=== PATIENT | female | born 1930 | race African-American/Black ===

== ENCOUNTER 2016-12-23 20:41 | Emergency (ER) | payer OTHER ==
[~2016-12-23] VITALS: Ht 170.2 cm; Wt 73.6 kg
[~2016-12-23 20:41] MED LIST: ABILIFY5 MG PO; ACETAMINOPHEN-1 EAC1; ACTONEL150 MG PO; ADULT LOW DOSE81 MG PO; AMLODIPINE BES2.5 MG PO; AMLODIPINE BESYL5 MG PO; ASPIRIN81 M2 PO; ATARAX,VISTARIL25 MG PO; ATARAX10 MG PO; ATORVASTATIN CA40 MG PO; AZASAN75 MG PO; Benadryl PO; CARVEDILOL12.5 MG PO; CLEOCIN150 MG PO; COREG12.5 M1 PO; CRANBERRY TABL1 EACH PO; Coreg PO; DULOXETINE HCL30 MG PO; Dulcolax PO; ERGOCALCIF50000 UNIT PO; ESCITALOPRAM OX10 MG PO; EVOXAC30 MG PO; FLUOXETINE HCL10 MG PO; GABAPENTIN100 MG PO; GLUCAGEN1 MG IM/SC; HUMULIN 70100 UNIT/2 SC; HUMULIN 70100 UNIT/2 SQ; HYDROCODON-ACE1 EA14 PO; HYDROXYCHLOROQ200 MG PO; IMURAN50 MG PO; Imuran PO; JANUVIA100 MG PO; K-DUR20 MEQ PO; KEFLEX500 MG PO; KETOCONAZOLE60 GM TP; LASIX10 MG PO; LASIX20 MG PO; LEVOFLOXACIN500 MG PO; LEVOTHYROXINE50 MCG PO; LIDODERM 5% P1 PATCH TP; LO-DOSE ASPIRIN81 M2 PO; LORTAB 7.5-3251 EACH PO; LOW DOSE ASPIRI81 M1 PO; LYRICA150 MG PO; LYRICA50 MG PO; Lasix PO; METOPROLOL SUCC25 MG PO; Maalox, Mylanta PO; Milk Of Magnesia,MOM PO; NORCO 5/3251 TABLET PO; NORCO 7.5/321 TABLET PO; NORVASC2.5 MG PO; NOVOLOG PE100 UNITS/ SC; Norvasc PO; OCEAN NASAL 0.645 ML BOTH NARES; PATANOL OP100 DROP/5 BOTH EYES; PLAQUENIL200 MG PO; PRAVACHOL20 MG PO; PREDNISONE5 MG PO; Percocet 5/325,Endoc PO; Plaquenil PO; Protonix PO; Senokot S,Pericolace PO; TOPROL XL50 MG PO; VITAMIN D1000 UNIT PO; VITAMIN D250000 UNIT PO; VITAMIN D31000 UNIT PO; VITAMIN D50000 UNI2 PO; Xarelto PO; ZOFRAN4 MG PO; ZOLPIDEM TARTRAT5 MG PO; Zocor PO; [UNRECOGNIZED DRUG - OTHER]; [UNRECOGNIZED DRUG - SUPPLY] MC; predniSONE PO
[2016-12-23 21:19] LABS: EOSINOPHIL (%) 1.8 % (0-5); EOSINOPHIL COUNT 0.1 K/uL (0-0.3); HEMATOCRIT 46.9 % (36.0-46.0); IMMATURE GRANULOCYTE (%) 0.3 % (0.0-0.7); INSTRUMENT ABS NEUTROPHIL CT 1.6 K/uL; LYMPHOCYTE COUNT 1.2 K/uL (1.0-2.8); MCHC 31.3 G/DL (30.0-36.0); MCV 95.7 FL (83-99); MEAN PLAT.VOLUME 10.8 uM^3 (9.5-12.4); MONOCYTE COUNT 0.4 K/uL (0-0.8); NEUTROPHIL COUNT 1.6 K/uL (1.8-6.4); PLATELET COUNT 131 K/uL (156-360); RBC DIS.WIDTH-SD 49.6 % (39-53); WHITE BLOOD COUNT 3.3 K/uL (4.1-10.2)
[2016-12-23 21:27] LABS: CHLORIDE 111 mEq/L (99-109); POTASSIUM 4.3 mEq/L (3.7-5.4); SODIUM 147 mEq/L (136-147)
[2016-12-23 21:28] LABS: GLUCOSE 100 mg/dL (70-99)
[2016-12-23 21:30] LABS: ANION GAP 9 MEQ/L (2-14)
[2016-12-23 21:32] LABS: GFR ESTIMATE (CALCULATED) > 59 mL/min/
[2016-12-23 21:33] LABS: UREA NITROGEN (BUN) 23 mg/dL (9-23)
[2016-12-23 21:42] LABS: INTER. NORMALIZED RATIO 1.1; PROTHROMBIN TIME 10.7 (9.2-11.2); PTT 28.9 (25-32); TROP-I INTERPRETATION NEGATIVE; TROPONIN-I < 0.01 ng/mL (0.0-0.30)
[2016-12-23 21:59] LABS: SAMPLE HEMOLYSIS CHECK 0; SAMPLE ICTERIC CHECK 0; SAMPLE LIPEMIA CHECK 0
[2016-12-23 22:05] LABS: HDL CHOLESTEROL 50 MG/DL (Desirable>=50); LDL CHOLESTEROL 87 mg/dL (Desirable<100); NON-HDL CHOLESTEROL 97 mg/dL (Desirable<160); TOTAL CHOLESTEROL 147 mg/dL (Desirable<200); TRIGLYCERIDES 51 MG/DL (Normal: <150)
[2016-12-23 23:08] LABS: ADD MIUA? YES; BILIRUBIN NEGATIVE; BLOOD MODERATE; COLOR YELLOW ((YELLOW)); GLUCOSE (STRIP) NEGATIVE; KETONES NEGATIVE; LEUKOCYTES MODERATE; NITRITE POSITIVE; PROTEIN (STRIP) 30; SPECIFIC GRAVITY 1.018 (1.000-1.030); UROBILINOGEN 0.2 MG/DL (0.2-1.0)
[2016-12-23 23:21] LABS: BACTERIA 3+ /HPF; EPITHELIAL CELLS 1+ /HPF; MUCUS TRACE /LPF; RED BLOOD CELLS 0-5 /HPF (0-5); UCUL ADDED? YES; WHITE BLOOD CELLS 30-40 /HPF (0-5)
[2016-12-24] MEDS ORDERED: CIPRO500 MG PO (00:23)
[2016-12-24 01:02] VITALS: BP 165/42
[2016-12-24 07:06] LABS: Estimated Average Glucose 120 mg/dL (70-123); HEMOGLOBIN A1c (GLYCOHEMOGLOB) 5.8 % HGB (Below 5.7)
== END 2016-12-24 01:05 | disposition home or self-care (01) ==
LOC: EME 20:41
PROVIDERS: Emergency Medicine
DX: N39.0 Urinary tract infection, site not specified (principal); R44.2 Other hallucinations; F29 Unspecified psychosis not due to a substance or known physiological condition; F32.9 Major depressive disorder, single episode, unspecified; I10 Essential (primary) hypertension; E11.9 Type 2 diabetes mellitus without complications; Z79.4 Long term (current) use of insulin; E03.9 Hypothyroidism, unspecified; Z88.2 Allergy status to sulfonamides; Z79.82 Long term (current) use of aspirin; Z87.891 Personal history of nicotine dependence
CPT/HCPCS: 70450; 71010; 80048; 80061; 81003; 83036; 84484; 85025; 85610; 85730; 87077; 87086; 87186; 90839; 93005; 99281; 99284

== ENCOUNTER 2017-01-09 12:02 | Emergency (ER) | payer OTHER ==
[~2017-01-09] VITALS: Ht 170.2 cm; Wt 77.3 kg
[~2017-01-09 12:02] MED LIST changes: +CIPRO500 MG PO
[2017-01-09 12:51] LABS: EOSINOPHIL COUNT 0.1 K/uL (0-0.3); HEMATOCRIT 43.3 % (36.0-46.0); IMMATURE GRANULOCYTE (%) 0.3 % (0.0-0.7); INSTRUMENT ABS NEUTROPHIL CT 2.3 K/uL; LYMPHOCYTE COUNT 0.7 K/uL (1.0-2.8); MCH 30.1 PG (29.0-34.0); MCHC 31.6 G/DL (30.0-36.0); MCV 95.2 FL (83-99); MEAN PLAT.VOLUME 10.7 uM^3 (9.5-12.4); MONOCYTE (%) 12.1 % (3-12); MONOCYTE COUNT 0.4 K/uL (0-0.8); NEUTROPHIL (%) 64.8 % (45-76); NEUTROPHIL COUNT 2.3 K/uL (1.8-6.4); PLATELET COUNT 134 K/uL (156-360); RBC DIS.WIDTH-CV 13.7 % (11.8-14.6); RBC DIS.WIDTH-SD 48.5 % (39-53); RED BLOOD COUNT 4.55 M/uL (3.80-5.20); WHITE BLOOD COUNT 3.5 K/uL (4.1-10.2)
[2017-01-09 13:02] LABS: CHLORIDE 106 mEq/L (99-109); POTASSIUM 3.7 mEq/L (3.7-5.4)
[2017-01-09 13:03] LABS: SODIUM 142 mEq/L (136-147)
[2017-01-09 13:05] LABS: GLUCOSE 113 mg/dL (70-99)
[2017-01-09 13:06] LABS: ANION GAP 7 MEQ/L (2-14)
[2017-01-09 13:07] LABS: TOTAL BILIRUBIN 0.7 mg/dL (0.0-1.0)
[2017-01-09 13:08] LABS: SERUM ETHYL ALCOHOL < 10 mg/dL
[2017-01-09 13:09] LABS: ALKALINE PHOSPHATASE 62 IU/L (3-129); GFR ESTIMATE (CALCULATED) > 59 mL/min/
[2017-01-09 13:10] LABS: DIRECT BILIRUBIN 0.3 mg/dL (0.0-0.3); UREA NITROGEN (BUN) 14 mg/dL (9-23)
[2017-01-09 13:29] LABS: ADD MIUA? NO; BILIRUBIN NEGATIVE; BLOOD NEGATIVE; COLOR YELLOW ((YELLOW)); GLUCOSE (STRIP) NEGATIVE; KETONES NEGATIVE; LEUKOCYTES NEGATIVE; NITRITE NEGATIVE; PROTEIN (STRIP) NEGATIVE; SPECIFIC GRAVITY 1.009 (1.000-1.030); UROBILINOGEN 0.2 MG/DL (0.2-1.0)
[2017-01-09 13:53] VITALS: BP 148/81
[2017-01-09 13:58] LABS: AMPHETAMINE NEGATIVE (500 ng/mL); BARBITURATES NEGATIVE (200 ng/mL); BENZODIAZEPINES NEGATIVE (150 ng/mL); COCAINE NEGATIVE (150 ng/mL); INTERNAL CONTROLS VALID? YES; METHADONE NEGATIVE (200 ng/mL); METHAMPHETAMINE NEGATIVE (500 ng/mL); OPIATES (MORPHINE) NEGATIVE (100 ng/mL); OXYCODONE NEGATIVE (100 ng/mL); PHENCYCLIDINE NEGATIVE (25 ng/mL); PROPOXYPHENE NEGATIVE (300 ng/mL); THC CANNABINOIDS NEGATIVE (50 ng/mL); TRICYCLIC ANTIDEPRESSANTS NEGATIVE (300 ng/mL)
== END 2017-01-09 14:05 | disposition home or self-care (01) ==
LOC: EME 12:02
PROVIDERS: Emergency Medicine
DX: F43.20 Adjustment disorder, unspecified (principal); Z63.0 Problems in relationship with spouse or partner; E03.9 Hypothyroidism, unspecified; I10 Essential (primary) hypertension; E11.9 Type 2 diabetes mellitus without complications; Z79.4 Long term (current) use of insulin; Z79.82 Long term (current) use of aspirin; Z87.891 Personal history of nicotine dependence
CPT/HCPCS: 80048; 80076; 81003; 85025; 90839; 99281; 99284; G0480

== ENCOUNTER → 2017-01-25 | Emergency (ER) | payer OTHER ==
[~2017-01-25] VITALS: Ht 170.2 cm; Wt 76.4 kg
[~2017-01-25] MED LIST changes: +HYDROCHLOROTHIA25 MG PO; +JANUVIA25 M1 PO; +LEVO-T25 MCG PO; +LEXAPRO10 MG PO
[2017-01-25 17:53] LABS: EOSINOPHIL (%) 1.4 % (0-5); EOSINOPHIL COUNT 0.1 K/uL (0-0.3); HEMATOCRIT 46.1 % (36.0-46.0); IMMATURE GRANULOCYTE (%) 0.3 % (0.0-0.7); INSTRUMENT ABS NEUTROPHIL CT 2.1 K/uL; LYMPHOCYTE COUNT 0.8 K/uL (1.0-2.8); MCH 30.3 PG (29.0-34.0); MCHC 31.7 G/DL (30.0-36.0); MCV 95.6 FL (83-99); MEAN PLAT.VOLUME 10.4 uM^3 (9.5-12.4); MONOCYTE (%) 13.4 % (3-12); MONOCYTE COUNT 0.5 K/uL (0-0.8); NEUTROPHIL (%) 60.7 % (45-76); NEUTROPHIL COUNT 2.1 K/uL (1.8-6.4); PLATELET COUNT 107 K/uL (156-360); RBC DIS.WIDTH-SD 49.1 % (39-53); RED BLOOD COUNT 4.82 M/uL (3.80-5.20); WHITE BLOOD COUNT 3.5 K/uL (4.1-10.2)
[2017-01-25 18:16] LABS: CHLORIDE 109 mEq/L (99-109)
[2017-01-25 18:17] LABS: POTASSIUM 4.2 mEq/L (3.7-5.4); SODIUM 145 mEq/L (136-147)
[2017-01-25 18:18] LABS: GLUCOSE 103 mg/dL (70-99)
[2017-01-25 18:20] LABS: ANION GAP 8 MEQ/L (2-14)
[2017-01-25 18:21] LABS: SERUM ETHYL ALCOHOL < 10 mg/dL
[2017-01-25 18:22] LABS: GFR ESTIMATE (CALCULATED) > 59 mL/min/
[2017-01-25 18:24] LABS: UREA NITROGEN (BUN) 19 mg/dL (9-23)
[2017-01-25 18:25] LABS: SALICYLATE < 5.0 MG/DL (15-30)
[2017-01-25 18:53] LABS: AMPHETAMINE NEGATIVE (500 ng/mL); BARBITURATES NEGATIVE (200 ng/mL); BENZODIAZEPINES NEGATIVE (150 ng/mL); COCAINE NEGATIVE (150 ng/mL); INTERNAL CONTROLS VALID? YES; METHADONE NEGATIVE (200 ng/mL); METHAMPHETAMINE NEGATIVE (500 ng/mL); OPIATES (MORPHINE) NEGATIVE (100 ng/mL); OXYCODONE NEGATIVE (100 ng/mL); PHENCYCLIDINE NEGATIVE (25 ng/mL); PROPOXYPHENE NEGATIVE (300 ng/mL); THC CANNABINOIDS NEGATIVE (50 ng/mL); TRICYCLIC ANTIDEPRESSANTS NEGATIVE (300 ng/mL)
[2017-01-25 22:31] LABS: ADD MIUA? YES; BILIRUBIN NEGATIVE; BLOOD NEGATIVE; COLOR YELLOW ((YELLOW)); GLUCOSE (STRIP) NEGATIVE; KETONES 5; LEUKOCYTES TRACE; NITRITE NEGATIVE; PROTEIN (STRIP) NEGATIVE; UROBILINOGEN 0.2 MG/DL (0.2-1.0)
[2017-01-25 22:34] LABS: BACTERIA 1+ /HPF; EPITHELIAL CELLS 1+ /HPF; HYALINE CASTS 0-5 /LPF; MUCUS TRACE /LPF; RED BLOOD CELLS 0-5 /HPF (0-5); UCUL ADDED? NO; WHITE BLOOD CELLS 0-5 /HPF (0-5)
[2017-01-26 04:00] VITALS: BP 124/78
== END ==
LOC: EME 15:37
PROVIDERS: Emergency Medicine
DX: F33.3 Major depressive disorder, recurrent, severe with psychotic symptoms (principal); R45.851 Suicidal ideations; R44.1 Visual hallucinations; E11.9 Type 2 diabetes mellitus without complications; M79.7 Fibromyalgia; I10 Essential (primary) hypertension; Z87.442 Personal history of urinary calculi; K21.9 Gastro-esophageal reflux disease without esophagitis; E03.9 Hypothyroidism, unspecified; Z90.49 Acquired absence of other specified parts of digestive tract; Z79.4 Long term (current) use of insulin; Z79.84 Long term (current) use of oral hypoglycemic drugs; Z79.82 Long term (current) use of aspirin; Z87.891 Personal history of nicotine dependence
CPT/HCPCS: 80048; 81003; 85025; 90837; 99281; 99285; G0480

== ENCOUNTER 2017-01-27 13:56 | Inpatient (IN) | payer OTHER ==
[~2017-01-27] VITALS: Ht 167.6 cm; Wt 71.5 kg
[~2017-01-27 13:56] MED LIST changes: -HYDROCHLOROTHIA25 MG PO; -LEVO-T25 MCG PO; -LEXAPRO10 MG PO
[2017-01-27 15:36] LABS: POINT-OF-CARE METER ID UU13113702
[2017-01-27 15:45] LABS: EOSINOPHIL (%) 2.6 % (0-5); EOSINOPHIL COUNT 0.1 K/uL (0-0.3); IMMATURE GRANULOCYTE (%) 0.3 % (0.0-0.7); INSTRUMENT ABS NEUTROPHIL CT 2.1 K/uL; LYMPHOCYTE COUNT 0.7 K/uL (1.0-2.8); MCH 30.3 PG (29.0-34.0); MCHC 31.5 G/DL (30.0-36.0); MONOCYTE (%) 15.2 % (3-12); MONOCYTE COUNT 0.5 K/uL (0-0.8); NEUTROPHIL COUNT 2.1 K/uL (1.8-6.4); RBC DIS.WIDTH-CV 13.8 % (11.8-14.6); RBC DIS.WIDTH-SD 49.1 % (39-53); RED BLOOD COUNT 4.79 M/uL (3.80-5.20); WHITE BLOOD COUNT 3.5 K/uL (4.1-10.2)
[2017-01-27 15:51] LABS: CHLORIDE 107 mEq/L (99-109); POTASSIUM 4.7 mEq/L (3.7-5.4); SODIUM 141 mEq/L (136-147)
[2017-01-27 15:52] LABS: GLUCOSE 123 mg/dL (70-99)
[2017-01-27 15:54] LABS: ANION GAP 6 MEQ/L (2-14)
[2017-01-27 15:56] LABS: GFR ESTIMATE (CALCULATED) > 59 mL/min/
[2017-01-27 15:57] LABS: UREA NITROGEN (BUN) 15 mg/dL (9-23)
[2017-01-27 16:03] LABS: TROP-I INTERPRETATION NEGATIVE; TROPONIN-I < 0.01 ng/mL (0.0-0.30)
[2017-01-27 16:19] LABS: ADD MIUA? YES; BILIRUBIN NEGATIVE; BLOOD NEGATIVE; COLOR YELLOW ((YELLOW)); GLUCOSE (STRIP) 50; KETONES NEGATIVE; LEUKOCYTES TRACE; NITRITE NEGATIVE; PROTEIN (STRIP) NEGATIVE; SPECIFIC GRAVITY 1.009 (1.000-1.030); UROBILINOGEN 0.2 MG/DL (0.2-1.0)
[2017-01-27 16:28] LABS: BACTERIA RARE /HPF; EPITHELIAL CELLS 1+ /HPF; HYALINE CASTS 0-5 /LPF; MUCUS TRACE /LPF; RED BLOOD CELLS 0-5 /HPF (0-5); UCUL ADDED? NO; WHITE BLOOD CELLS 0-5 /HPF (0-5)
[2017-01-27 16:50] LABS: MEAN PLAT.VOLUME 11.7 uM^3 (9.5-12.4); PLATELET COUNT 92 K/uL (156-360)
[2017-01-27] MEDS ORDERED: LEXAPRO10 MG PO (19:18)
[2017-01-27 23:20] LABS: TROP-I INTERPRETATION NEGATIVE; TROPONIN-I < 0.01 ng/mL (0.0-0.30)
[2017-01-28] VITALS (8 sets, daily range): BP systolic 106–193; BP diastolic 61–87
[2017-01-28 07:33] LABS: EOSINOPHIL (%) 1.5 % (0-5); EOSINOPHIL COUNT 0.1 K/uL (0-0.3); HEMATOCRIT 47.4 % (36.0-46.0); IMMATURE GRANULOCYTE (%) 0.2 % (0.0-0.7); INSTRUMENT ABS NEUTROPHIL CT 3.9 K/uL; LYMPHOCYTE COUNT 0.4 K/uL (1.0-2.8); MCH 30.8 PG (29.0-34.0); MCHC 32.9 G/DL (30.0-36.0); MCV 93.7 FL (83-99); MONOCYTE (%) 8.3 % (3-12); MONOCYTE COUNT 0.4 K/uL (0-0.8); NEUTROPHIL (%) 81.8 % (45-76); NEUTROPHIL COUNT 3.9 K/uL (1.8-6.4); PLATELET COUNT 101 K/uL (156-360); RBC DIS.WIDTH-SD 47.9 % (39-53); RED BLOOD COUNT 5.06 M/uL (3.80-5.20); WHITE BLOOD COUNT 4.7 K/uL (4.1-10.2)
[2017-01-28 08:02] LABS: ALKALINE PHOSPHATASE 74 IU/L (3-129); ANION GAP 9 MEQ/L (2-14); CHLORIDE 107 MEQ/L (99-109); GFR ESTIMATE (CALCULATED) > 59 mL/min/; GLUCOSE 93 mg/dL (70-99); POTASSIUM 4.4 MEQ/L (3.7-5.4); SAMPLE HEMOLYSIS CHECK 1; SAMPLE ICTERIC CHECK 0; SAMPLE LIPEMIA CHECK 0; SODIUM 140 MEQ/L (136-147); TOTAL BILIRUBIN 0.6 MG/DL (0.0-1.0); UREA NITROGEN (BUN) 11 mg/dL (9-23)
[2017-01-28 08:04] LABS: TROP-I INTERPRETATION NEGATIVE; TROPONIN-I 0.02 ng/mL (0.0-0.30)
[2017-01-28 08:09] LABS: POINT-OF-CARE METER ID UU13113698; POINT-OF-CARE USER ID NUTSLF44
[2017-01-28 12:04] LABS: POINT-OF-CARE METER ID UU13113781
[2017-01-28 12:10] LABS: POINT-OF-CARE METER ID UU13113781; POINT-OF-CARE USER ID NUTSLF44
[2017-01-28 12:23] LABS: POINT-OF-CARE METER ID UU13113702
[2017-01-28 14:09] LABS: POINT-OF-CARE METER ID UU13113698; POINT-OF-CARE USER ID NUTSLF44
[2017-01-28 14:39] LABS: GLUCOSE 85 mg/dL (70-99)
[2017-01-28 14:44] LABS: TROP-I INTERPRETATION NEGATIVE; TROPONIN-I 0.01 ng/mL (0.0-0.30)
[2017-01-28 17:39] LABS: POINT-OF-CARE METER ID UU13113698; POINT-OF-CARE USER ID NUTSLF44
[2017-01-28 21:04] LABS: TROP-I INTERPRETATION NEGATIVE; TROPONIN-I < 0.01 ng/mL (0.0-0.30)
[2017-01-28 21:54] LABS: POINT-OF-CARE METER ID UU13113698
[2017-01-28 22:44] LABS: POINT-OF-CARE METER ID UU13113781
[2017-01-29] VITALS (7 sets, daily range): BP systolic 123–201; BP diastolic 56–88
[2017-01-29 00:46] LABS: POINT-OF-CARE METER ID UU13113781
[2017-01-29 06:32] LABS: ALKALINE PHOSPHATASE 87 IU/L (3-129); ANION GAP 7 MEQ/L (2-14); CHLORIDE 106 MEQ/L (99-109); GFR ESTIMATE (CALCULATED) > 59 mL/min/; GLUCOSE 96 mg/dL (70-99); SAMPLE HEMOLYSIS CHECK 0; SAMPLE ICTERIC CHECK 0; SAMPLE LIPEMIA CHECK 0; SODIUM 142 MEQ/L (136-147); TOTAL BILIRUBIN 0.5 MG/DL (0.0-1.0); UREA NITROGEN (BUN) 13 mg/dL (9-23)
[2017-01-29 07:01] LABS: TROP-I INTERPRETATION NEGATIVE; TROPONIN-I 0.01 ng/mL (0.0-0.30)
[2017-01-29 08:10] LABS: POINT-OF-CARE METER ID UU13113781
[2017-01-29 08:10] LABS: POINT-OF-CARE METER ID UU13113698; POINT-OF-CARE USER ID NUTSLF44
[2017-01-29 08:31] LABS: POINT-OF-CARE METER ID UU13113698; POINT-OF-CARE USER ID ENVKC36
[2017-01-29 11:19] LABS: HBSG INDEX 0.25
[2017-01-29 11:20] LABS: HPCA INDEX 0.19
[2017-01-29 11:22] LABS: ANTI-HEPATITIS A VIRUS (IGM) Nonreactive; HAV INDEX 0.26
[2017-01-29 11:23] LABS: ANTI-HEPATITIS B CORE (IGM) Nonreactive; HBC IgM INDEX 0.06
[2017-01-29 11:56] LABS: POINT-OF-CARE METER ID UU13113698; POINT-OF-CARE USER ID ENVKC36
[2017-01-29 17:08] LABS: POINT-OF-CARE METER ID UU13113698; POINT-OF-CARE USER ID ENVKC36
[2017-01-29 21:01] LABS: POINT-OF-CARE METER ID UU13113698
[2017-01-30] VITALS (7 sets, daily range): BP systolic 92–192; BP diastolic 51–88
[2017-01-30 08:15] LABS: POINT-OF-CARE USER ID ENVKC36
[2017-01-30 11:56] LABS: POINT-OF-CARE USER ID ENVKC36
[2017-01-30 20:33] LABS: POINT-OF-CARE METER ID UU14174216
[2017-01-31 03:33] VITALS: BP 173/79
[2017-01-31 07:25] VITALS: BP 139/63
[2017-01-31 07:55] LABS: POINT-OF-CARE METER ID UU13113698
[2017-01-31] MEDS ORDERED: HYDROCHLOROTHIA25 MG PO (08:09)
[2017-01-31] MEDS ORDERED: LEVO-T25 MCG PO (08:09)
[2017-01-31 09:46] LABS: ALKALINE PHOSPHATASE 106 IU/L (3-129); ANION GAP 8 MEQ/L (2-14); CHLORIDE 104 MEQ/L (99-109); GFR ESTIMATE (CALCULATED) > 59 mL/min/; GLUCOSE 94 mg/dL (70-99); POTASSIUM 4.5 MEQ/L (3.7-5.4); SAMPLE HEMOLYSIS CHECK 0; SAMPLE ICTERIC CHECK 0; SAMPLE LIPEMIA CHECK 0; SODIUM 138 MEQ/L (136-147); TOTAL BILIRUBIN 0.5 MG/DL (0.0-1.0); UREA NITROGEN (BUN) 19 mg/dL (9-23)
== END 2017-01-31 13:18 | disposition home or self-care (01) | DRG 315 ==
LOC: EME → EDBD 13:56 → EDOF 20:02 → 4EAST 20:02
PROVIDERS: Emergency Medicine; Internal Medicine; Nurse Practitioner Adult Health; Pediatrics; Physician Assistant
DX: I95.9 Hypotension, unspecified (principal); J81.1 Chronic pulmonary edema; F32.3 Major depressive disorder, single episode, severe with psychotic features; E11.649 Type 2 diabetes mellitus with hypoglycemia without coma; D69.6 Thrombocytopenia, unspecified; I71.2 Thoracic aortic aneurysm, without rupture; I44.1 Atrioventricular block, second degree; R00.1 Bradycardia, unspecified; E03.9 Hypothyroidism, unspecified; R55 Syncope and collapse; E55.9 Vitamin D deficiency, unspecified; E78.5 Hyperlipidemia, unspecified; F41.1 Generalized anxiety disorder; I10 Essential (primary) hypertension; I25.10 Atherosclerotic heart disease of native coronary artery without angina pectoris; I73.9 Peripheral vascular disease, unspecified; M06.9 Rheumatoid arthritis, unspecified; M32.9 Systemic lupus erythematosus, unspecified; M79.7 Fibromyalgia; Z87.442 Personal history of urinary calculi; Z79.4 Long term (current) use of insulin; Z82.0 Family history of epilepsy and other diseases of the nervous system; Z82.49 Family history of ischemic heart disease and other diseases of the circulatory system; Z87.891 Personal history of nicotine dependence; Z96.643 Presence of artificial hip joint, bilateral; G62.9 Polyneuropathy, unspecified; G89.29 Other chronic pain; R44.2 Other hallucinations; R60.9 Edema, unspecified; R74.8 Abnormal levels of other serum enzymes; R79.89 Other specified abnormal findings of blood chemistry; I49.9 Cardiac arrhythmia, unspecified
CPT/HCPCS: 71010; 74020; 76705; 80048; 80053; 80074; 81003; 82948; 84484; 84999; 85025; 93005; 93306; 99281; 99285; J1644

== ENCOUNTER 2017-02-05 18:31 | Emergency (ER) | payer OTHER ==
[~2017-02-05] VITALS: Ht 170.2 cm; Wt 58.0 kg
[~2017-02-05 18:31] MED LIST changes: +HYDROCHLOROTHIA25 MG PO; +LEVO-T25 MCG PO; +LEXAPRO10 MG PO
[2017-02-05 20:19] LABS: HEMATOCRIT 46.7 % (36.0-46.0); MCH 30.1 PG (29.0-34.0); MCHC 31.5 G/DL (30.0-36.0); MCV 95.7 FL (83-99); MEAN PLAT.VOLUME 10.8 uM^3 (9.5-12.4); PLATELET COUNT 144 K/uL (156-360); RBC DIS.WIDTH-CV 14.1 % (11.8-14.6); RBC DIS.WIDTH-SD 49.7 % (39-53); RED BLOOD COUNT 4.88 M/uL (3.80-5.20); WHITE BLOOD COUNT 3.6 K/uL (4.1-10.2)
[2017-02-05 20:27] LABS: CHLORIDE 105 mEq/L (99-109); POTASSIUM 3.8 mEq/L (3.7-5.4); SODIUM 143 mEq/L (136-147)
[2017-02-05 20:29] LABS: GLUCOSE 107 mg/dL (70-99)
[2017-02-05 20:30] LABS: ANION GAP 9 MEQ/L (2-14)
[2017-02-05 20:31] LABS: TOTAL BILIRUBIN 0.7 mg/dL (0.0-1.0)
[2017-02-05 20:32] LABS: ALKALINE PHOSPHATASE 102 IU/L (3-129); SERUM ETHYL ALCOHOL < 10 mg/dL
[2017-02-05 20:33] LABS: GFR ESTIMATE (CALCULATED) > 59 mL/min/
[2017-02-05 20:34] LABS: UREA NITROGEN (BUN) 22 mg/dL (9-23)
[2017-02-06 00:23] LABS: ADD MIUA? YES; BILIRUBIN NEGATIVE; BLOOD SMALL; COLOR YELLOW ((YELLOW)); GLUCOSE (STRIP) NEGATIVE; KETONES 5; LEUKOCYTES SMALL; NITRITE NEGATIVE; PROTEIN (STRIP) NEGATIVE; SPECIFIC GRAVITY 1.015 (1.000-1.030)
[2017-02-06 00:26] LABS: BACTERIA RARE /HPF; EPITHELIAL CELLS RARE /HPF; MUCUS TRACE /LPF; RED BLOOD CELLS 0-5 /HPF (0-5); WHITE BLOOD CELLS 0-5 /HPF (0-5)
[2017-02-06 00:33] LABS: AMPHETAMINE NEGATIVE (500 ng/mL); BARBITURATES NEGATIVE (200 ng/mL); BENZODIAZEPINES NEGATIVE (150 ng/mL); COCAINE NEGATIVE (150 ng/mL); INTERNAL CONTROLS VALID? YES; METHADONE NEGATIVE (200 ng/mL); METHAMPHETAMINE NEGATIVE (500 ng/mL); OPIATES (MORPHINE) NEGATIVE (100 ng/mL); OXYCODONE NEGATIVE (100 ng/mL); PHENCYCLIDINE NEGATIVE (25 ng/mL); PROPOXYPHENE NEGATIVE (300 ng/mL); THC CANNABINOIDS NEGATIVE (50 ng/mL); TRICYCLIC ANTIDEPRESSANTS NEGATIVE (300 ng/mL)
[2017-02-06 15:41] VITALS: BP 125/63
[2017-02-06] MEDS ORDERED: FUROSEMIDE20 MG PO (21:28)
[2017-02-06] MEDS ORDERED: SYNTHROID25 MCG PO (21:28)
[2017-02-06] MEDS ORDERED: HUMULIN 70100 UNIT/2 SC (21:30)
== END 2017-02-06 15:42 ==
LOC: EME 18:31 → EDOF 02-06 12:52
PROVIDERS: Emergency Medicine
DX: F32.3 Major depressive disorder, single episode, severe with psychotic features (principal); R45.851 Suicidal ideations; I95.89 Other hypotension; R00.1 Bradycardia, unspecified; I10 Essential (primary) hypertension; E11.9 Type 2 diabetes mellitus without complications; E03.9 Hypothyroidism, unspecified; Z87.891 Personal history of nicotine dependence
CPT/HCPCS: 80048; 80053; 81003; 84484; 85027; 87086; 90837; 93005; 99281; 99285; G0480; J2310; J7030

== ENCOUNTER 2017-02-06 19:24 | Observation (INO) | payer OTHER ==
[~2017-02-06] VITALS: Ht 160 cm; Wt 73.0 kg
[2017-02-06 20:37] LABS: HEMATOCRIT 43.6 % (36.0-46.0); MCH 30.4 PG (29.0-34.0); MCHC 31.9 G/DL (30.0-36.0); MCV 95.4 FL (83-99); MEAN PLAT.VOLUME 11.1 uM^3 (9.5-12.4); PLATELET COUNT 123 K/uL (156-360); RBC DIS.WIDTH-CV 14.1 % (11.8-14.6); RBC DIS.WIDTH-SD 49.3 % (39-53); RED BLOOD COUNT 4.57 M/uL (3.80-5.20); WHITE BLOOD COUNT 3.5 K/uL (4.1-10.2)
[2017-02-06 20:49] LABS: CHLORIDE 106 mEq/L (99-109); SODIUM 139 mEq/L (136-147)
[2017-02-06 20:50] LABS: GLUCOSE 106 mg/dL (70-99)
[2017-02-06 20:52] LABS: ANION GAP 6 MEQ/L (2-14)
[2017-02-06 20:54] LABS: GFR ESTIMATE (CALCULATED) > 59 mL/min/
[2017-02-06 20:55] LABS: UREA NITROGEN (BUN) 19 mg/dL (9-23)
[2017-02-06 20:56] LABS: POTASSIUM 4.6 mEq/L (3.7-5.4)
[2017-02-06 20:58] LABS: TROP-I INTERPRETATION NEGATIVE; TROPONIN-I < 0.01 ng/mL (0.0-0.30)
[2017-02-06] MEDS ORDERED: SYNTHROID25 MCG PO (21:28)
[2017-02-06] MEDS ORDERED: FUROSEMIDE20 MG PO (21:28)
[2017-02-06] MEDS ORDERED: HUMULIN 70100 UNIT/2 SC (21:30)
[2017-02-06 23:36] VITALS: BP 188/86
[2017-02-07] VITALS (7 sets, daily range): BP systolic 134–165; BP diastolic 61–79
[2017-02-07 01:33] LABS: METH RESISTANT S AUREUS PCR NEGATIVE (NEGATIVE)
[2017-02-07 01:38] LABS: PROBE CHECK PASS; SPECIMEN PROCESSING CONTROL PASS
[2017-02-07 06:44] LABS: EOSINOPHIL (%) 2.5 % (0-5); EOSINOPHIL COUNT 0.1 K/uL (0-0.3); HEMATOCRIT 44.8 % (36.0-46.0); INSTRUMENT ABS NEUTROPHIL CT 1.9 K/uL; LYMPHOCYTE COUNT 0.8 K/uL (1.0-2.8); MCH 29.7 PG (29.0-34.0); MCHC 31.3 G/DL (30.0-36.0); MCV 94.9 FL (83-99); MEAN PLAT.VOLUME 11.1 uM^3 (9.5-12.4); MONOCYTE (%) 11.1 % (3-12); MONOCYTE COUNT 0.4 K/uL (0-0.8); NEUTROPHIL (%) 59.5 % (45-76); NEUTROPHIL COUNT 1.9 K/uL (1.8-6.4); PLATELET COUNT 137 K/uL (156-360); RBC DIS.WIDTH-CV 13.9 % (11.8-14.6); RBC DIS.WIDTH-SD 48.5 % (39-53); RED BLOOD COUNT 4.72 M/uL (3.80-5.20); WHITE BLOOD COUNT 3.2 K/uL (4.1-10.2)
[2017-02-07 07:09] LABS: ALKALINE PHOSPHATASE 78 IU/L (3-129); ANION GAP 5 MEQ/L (2-14); CHLORIDE 106 MEQ/L (99-109); DIRECT BILIRUBIN 0.2 mg/dL (0.0-0.3); GFR ESTIMATE (CALCULATED) > 59 mL/min/; GLUCOSE 90 mg/dL (70-99); SAMPLE HEMOLYSIS CHECK 0; SAMPLE ICTERIC CHECK 0; SAMPLE LIPEMIA CHECK 0; SODIUM 141 MEQ/L (136-147); TOTAL BILIRUBIN 0.6 MG/DL (0.0-1.0); UREA NITROGEN (BUN) 17 mg/dL (9-23)
[2017-02-07 07:20] LABS: TROP-I INTERPRETATION NEGATIVE; TROPONIN-I 0.01 ng/mL (0.0-0.30)
[2017-02-07 12:18] LABS: ADD MIUA? YES; BILIRUBIN NEGATIVE; BLOOD SMALL; COLOR YELLOW ((YELLOW)); GLUCOSE (STRIP) NEGATIVE; KETONES NEGATIVE; LEUKOCYTES TRACE; NITRITE NEGATIVE; PROTEIN (STRIP) NEGATIVE; SPECIFIC GRAVITY 1.013 (1.000-1.030); UROBILINOGEN 0.2 MG/DL (0.2-1.0)
[2017-02-07 12:30] LABS: BACTERIA NONE SEEN /HPF; EPITHELIAL CELLS 1+ /HPF; HYALINE CASTS 0-5 /LPF; MUCUS TRACE /LPF; RED BLOOD CELLS 0-5 /HPF (0-5); UCUL ADDED? NO; WHITE BLOOD CELLS 0-5 /HPF (0-5)
[2017-02-07 13:51] LABS: TROP-I INTERPRETATION NEGATIVE; TROPONIN-I 0.02 ng/mL (0.0-0.30)
[2017-02-08 00:34] VITALS: BP 196/82
[2017-02-08 04:35] VITALS: BP 170/78
[2017-02-08 07:54] VITALS: BP 167/72
[2017-02-08 11:49] VITALS: BP 181/86
== END 2017-02-08 14:42 ==
LOC: EME 19:24 → EDOF 21:02 → 5WEST 21:02 → EDOF 21:02 → 5WEST 23:22
PROVIDERS: Emergency Medicine; Hospitalist; Physician Assistant Medical
DX: R00.1 Bradycardia, unspecified (principal); F33.1 Major depressive disorder, recurrent, moderate; R55 Syncope and collapse; I10 Essential (primary) hypertension; I25.10 Atherosclerotic heart disease of native coronary artery without angina pectoris; E78.5 Hyperlipidemia, unspecified; M06.9 Rheumatoid arthritis, unspecified; I71.2 Thoracic aortic aneurysm, without rupture; Z87.891 Personal history of nicotine dependence; Z88.0 Allergy status to penicillin; Z88.1 Allergy status to other antibiotic agents; Z88.8 Allergy status to other drugs, medicaments and biological substances
CPT/HCPCS: 71020; 80048; 80076; 81003; 83880; 84439; 84443; 84484; 85025; 85027; 87641; 93005; 93970; 99281; 99285; G0378; J0360; J1650; J7030

== ENCOUNTER 2017-02-08 14:13 | Inpatient (IN) | payer OTHER ==
[~2017-02-08] VITALS: Ht 160 cm; Wt 73.0 kg
[~2017-02-08 14:13] MED LIST changes: +FUROSEMIDE20 MG PO; +SYNTHROID25 MCG PO
[2017-02-08 14:49] VITALS: BP 213/107
[2017-02-08 15:26] VITALS: BP 200/95
[2017-02-08 17:49] LABS: POINT-OF-CARE METER ID UU13113830; POINT-OF-CARE USER ID BHSSMG
[2017-02-08 18:01] VITALS: BP 167/86
[2017-02-08 20:47] LABS: POINT-OF-CARE METER ID UU13113830; POINT-OF-CARE USER ID BHSSMG
[2017-02-09 06:37] LABS: POINT-OF-CARE METER ID UU13113830
[2017-02-09 07:55] VITALS: BP 173/101
[2017-02-09 11:37] VITALS: BP 156/83
[2017-02-09 12:24] LABS: POINT-OF-CARE METER ID UU14100415
[2017-02-09 16:00] VITALS: BP 186/98
[2017-02-09 16:28] LABS: POINT-OF-CARE METER ID UU14188576
[2017-02-09 19:09] VITALS: BP 138/79
[2017-02-09 21:10] LABS: POINT-OF-CARE METER ID UU14188576; POINT-OF-CARE USER ID BHSMEW
[2017-02-10 06:12] LABS: POINT-OF-CARE METER ID UU14188576
[2017-02-10 07:17] VITALS: BP 173/72
[2017-02-10 11:45] LABS: POINT-OF-CARE METER ID UU14188576
[2017-02-10 14:00] VITALS: BP 140/63
[2017-02-10 15:46] VITALS: BP 146/65
[2017-02-10 17:00] LABS: POINT-OF-CARE METER ID UU14188576; POINT-OF-CARE USER ID BHSMEW
[2017-02-10 20:38] LABS: POINT-OF-CARE METER ID UU14188576; POINT-OF-CARE USER ID BHSMEW
[2017-02-11 06:25] LABS: POINT-OF-CARE METER ID UU14188576
[2017-02-11 07:28] VITALS: BP 141/61
[2017-02-11] MEDS ORDERED: SEROQUEL12.5 MG PO (09:21)
[2017-02-11] MEDS ORDERED: LEXAPRO10 MG PO (09:24)
[2017-02-11] MEDS ORDERED: GABAPENTIN100 MG PO (09:24)
[2017-03-01] MEDS ORDERED: SEROQUEL50 MG PO (08:50)
== END 2017-02-11 11:06 | disposition home or self-care (01) | DRG 885 ==
LOC: 1WEST 14:13
PROVIDERS: Psychiatry & Neurology Psychiatry
DX: F33.2 Major depressive disorder, recurrent severe without psychotic features (principal); E11.42 Type 2 diabetes mellitus with diabetic polyneuropathy; R00.1 Bradycardia, unspecified; R44.2 Other hallucinations; M32.9 Systemic lupus erythematosus, unspecified; E03.9 Hypothyroidism, unspecified; E78.5 Hyperlipidemia, unspecified; I10 Essential (primary) hypertension; I25.10 Atherosclerotic heart disease of native coronary artery without angina pectoris; M06.9 Rheumatoid arthritis, unspecified; G89.29 Other chronic pain; F41.9 Anxiety disorder, unspecified; I44.0 Atrioventricular block, first degree; Z82.49 Family history of ischemic heart disease and other diseases of the circulatory system; Z96.643 Presence of artificial hip joint, bilateral; R42 Dizziness and giddiness; R20.2 Paresthesia of skin; Z91.81 History of falling
CPT/HCPCS: 82948; 97165 GO; J1815

== ENCOUNTER → 2017-03-01 | Emergency (ER) | payer OTHER ==
[~2017-03-01] VITALS: Ht 170.2 cm; Wt 70.4 kg
[~2017-03-01] MED LIST changes: +CARDURA2 M1 PO; +LEVOXYL50 MCG PO; +LIPITOR40 MG PO; +NEURONTIN100 MG PO; +SEROQUEL12.5 MG PO; +SEROQUEL50 MG PO; +VITAMIN B-125000 MC1 PO
[2017-03-01 04:53] LABS: ADD MIUA? YES; BILIRUBIN NEGATIVE; BLOOD SMALL; COLOR YELLOW ((YELLOW)); GLUCOSE (STRIP) NEGATIVE; KETONES NEGATIVE; LEUKOCYTES SMALL; NITRITE NEGATIVE; PROTEIN (STRIP) NEGATIVE; SPECIFIC GRAVITY 1.017 (1.000-1.030); UROBILINOGEN 0.2 MG/DL (0.2-1.0)
[2017-03-01 05:24] LABS: BACTERIA RARE /HPF; EPITHELIAL CELLS 1+ /HPF; HYALINE CASTS 0-5 /LPF; MUCUS TRACE /LPF; RED BLOOD CELLS 0-5 /HPF (0-5); UCUL ADDED? NO; WHITE BLOOD CELLS 0-5 /HPF (0-5)
[2017-03-01 05:38] LABS: CHLORIDE 105 mEq/L (99-109); POTASSIUM 4.2 mEq/L (3.7-5.4); SODIUM 140 mEq/L (136-147)
[2017-03-01 05:40] LABS: GLUCOSE 117 mg/dL (70-99)
[2017-03-01 05:42] LABS: ANION GAP 10 MEQ/L (2-14)
[2017-03-01 05:43] LABS: SERUM ETHYL ALCOHOL < 10 mg/dL
[2017-03-01 05:44] LABS: GFR ESTIMATE (CALCULATED) > 59 mL/min/
[2017-03-01 05:45] LABS: UREA NITROGEN (BUN) 17 mg/dL (9-23)
[2017-03-01 05:56] LABS: HEMATOCRIT 44.3 % (36.0-46.0); MCH 30.6 PG (29.0-34.0); MCHC 32.3 G/DL (30.0-36.0); MCV 94.9 FL (83-99); RBC DIS.WIDTH-CV 13.7 % (11.8-14.6); RBC DIS.WIDTH-SD 47.8 % (39-53); RED BLOOD COUNT 4.67 M/uL (3.80-5.20); WHITE BLOOD COUNT 3.5 K/uL (4.1-10.2)
[2017-03-01 06:25] LABS: AMPHETAMINE NEGATIVE (500 ng/mL); BARBITURATES NEGATIVE (200 ng/mL); BENZODIAZEPINES NEGATIVE (150 ng/mL); COCAINE NEGATIVE (150 ng/mL); INTERNAL CONTROLS VALID? YES; METHADONE NEGATIVE (200 ng/mL); METHAMPHETAMINE NEGATIVE (500 ng/mL); OPIATES (MORPHINE) NEGATIVE (100 ng/mL); OXYCODONE NEGATIVE (100 ng/mL); PHENCYCLIDINE NEGATIVE (25 ng/mL); PROPOXYPHENE NEGATIVE (300 ng/mL); THC CANNABINOIDS NEGATIVE (50 ng/mL); TRICYCLIC ANTIDEPRESSANTS NEGATIVE (300 ng/mL)
[2017-03-01 07:14] LABS: MEAN PLAT.VOLUME 12.2 uM^3 (9.5-12.4)
[2017-03-01 07:19] LABS: PLATELET COUNT 80 K/uL (156-360)
[2017-03-01 09:50] VITALS: BP 154/82
== END | disposition home or self-care (01) ==
LOC: EME 03:45
PROVIDERS: Emergency Medicine
DX: R44.2 Other hallucinations (principal); F33.3 Major depressive disorder, recurrent, severe with psychotic symptoms; I10 Essential (primary) hypertension; E03.9 Hypothyroidism, unspecified; E11.9 Type 2 diabetes mellitus without complications; Z79.4 Long term (current) use of insulin; M79.7 Fibromyalgia; Z87.442 Personal history of urinary calculi; Z79.82 Long term (current) use of aspirin; Z87.891 Personal history of nicotine dependence
CPT/HCPCS: 80048; 81003; 83880; 85027; 90839; 99281; 99284; G0480

== ENCOUNTER 2017-03-06 13:32 | Inpatient (IN) | payer OTHER ==
[~2017-03-06] VITALS: Ht 170.2 cm; Wt 74.0 kg
[~2017-03-06 13:32] MED LIST changes: -CARDURA2 M1 PO; -LEVOXYL50 MCG PO; -LIPITOR40 MG PO; -NEURONTIN100 MG PO; -VITAMIN B-125000 MC1 PO
[2017-03-06] MEDS ORDERED: CARDURA2 M1 PO (13:43)
[2017-03-06] MEDS ORDERED: VITAMIN B-125000 MC1 PO (13:43)
[2017-03-06] MEDS ORDERED: SEROQUEL12.5 MG PO (13:44)
[2017-03-06] MEDS ORDERED: SEROQUEL50 MG PO (13:46)
[2017-03-06 16:29] LABS: CHLORIDE 110 mEq/L (99-109); POTASSIUM 4.3 mEq/L (3.7-5.4); SODIUM 144 mEq/L (136-147)
[2017-03-06 16:31] LABS: GLUCOSE 93 mg/dL (70-99)
[2017-03-06 16:32] LABS: ANION GAP 8 MEQ/L (2-14)
[2017-03-06 16:33] LABS: TOTAL BILIRUBIN 0.6 mg/dL (0.0-1.0)
[2017-03-06 16:34] LABS: SERUM ETHYL ALCOHOL < 10 mg/dL
[2017-03-06 16:35] LABS: GFR ESTIMATE (CALCULATED) > 59 mL/min/
[2017-03-06 16:36] LABS: ALKALINE PHOSPHATASE 60 IU/L (3-129)
[2017-03-06 16:37] LABS: UREA NITROGEN (BUN) 14 mg/dL (9-23)
[2017-03-06 16:38] LABS: SALICYLATE < 5.0 MG/DL (15-30)
[2017-03-06 19:09] LABS: ADD MIUA? YES; BILIRUBIN NEGATIVE; BLOOD SMALL; COLOR YELLOW ((YELLOW)); GLUCOSE (STRIP) NEGATIVE; KETONES NEGATIVE; LEUKOCYTES MODERATE; NITRITE NEGATIVE; PROTEIN (STRIP) NEGATIVE; SPECIFIC GRAVITY 1.008 (1.000-1.030); UROBILINOGEN 0.2 MG/DL (0.2-1.0)
[2017-03-06 19:17] LABS: AMPHETAMINE NEGATIVE (500 ng/mL); BARBITURATES NEGATIVE (200 ng/mL); BENZODIAZEPINES NEGATIVE (150 ng/mL); COCAINE NEGATIVE (150 ng/mL); INTERNAL CONTROLS VALID? YES; METHADONE NEGATIVE (200 ng/mL); METHAMPHETAMINE NEGATIVE (500 ng/mL); OPIATES (MORPHINE) NEGATIVE (100 ng/mL); OXYCODONE NEGATIVE (100 ng/mL); PHENCYCLIDINE NEGATIVE (25 ng/mL); PROPOXYPHENE NEGATIVE (300 ng/mL); THC CANNABINOIDS NEGATIVE (50 ng/mL); TRICYCLIC ANTIDEPRESSANTS PRESUMPTIVE POSITIVE (300 ng/mL)
[2017-03-06 19:29] LABS: BACTERIA 1+ /HPF; EPITHELIAL CELLS 1+ /HPF; HYALINE CASTS 0-5 /LPF; MUCUS TRACE /LPF; RED BLOOD CELLS 0-5 /HPF (0-5); WHITE BLOOD CELLS 0-5 /HPF (0-5)
[2017-03-06 20:51] LABS: HEMATOCRIT 42.7 % (36.0-46.0); MCH 30.6 PG (29.0-34.0); MCHC 32.1 G/DL (30.0-36.0); MCV 95.5 FL (83-99); MEAN PLAT.VOLUME 11.3 uM^3 (9.5-12.4); PLATELET COUNT 104 K/uL (156-360); RBC DIS.WIDTH-CV 13.6 % (11.8-14.6); RBC DIS.WIDTH-SD 48.4 % (39-53); RED BLOOD COUNT 4.47 M/uL (3.80-5.20); WHITE BLOOD COUNT 2.9 K/uL (4.1-10.2)
[2017-03-07] MEDS ORDERED: NEURONTIN100 MG PO (12:25)
[2017-03-07] MEDS ORDERED: HYDROCHLOROTHIA25 MG PO (12:29)
[2017-03-07] MEDS ORDERED: LEVOXYL50 MCG PO (12:31)
[2017-03-07] MEDS ORDERED: LEXAPRO10 MG PO (12:34)
[2017-03-07] MEDS ORDERED: LIPITOR40 MG PO (12:37)
[2017-03-07 13:29] LABS: POINT-OF-CARE METER ID UU14100415
[2017-03-07 14:13] LABS: POINT-OF-CARE METER ID UU14100415
[2017-03-07 15:04] LABS: POINT-OF-CARE METER ID UU14100415
[2017-03-07 15:12] LABS: POINT-OF-CARE METER ID UU14100415
[2017-03-07 16:07] VITALS: BP 145/97
[2017-03-07 17:47] LABS: POINT-OF-CARE METER ID UU14188576; POINT-OF-CARE USER ID BHSLRM
[2017-03-08 06:17] LABS: POINT-OF-CARE METER ID UU14188576; POINT-OF-CARE USER ID ENVTLS63
[2017-03-08 07:06] LABS: POINT-OF-CARE METER ID UU14188576; POINT-OF-CARE USER ID ENVTLS63
[2017-03-08 08:11] VITALS: BP 107/69
[2017-03-08 12:58] LABS: POINT-OF-CARE METER ID UU14188576; POINT-OF-CARE USER ID BHSMRC
[2017-03-08 15:42] VITALS: BP 158/88
[2017-03-08 17:23] LABS: POINT-OF-CARE METER ID UU14188576; POINT-OF-CARE USER ID BHSSMG
[2017-03-08 20:44] LABS: POINT-OF-CARE METER ID UU14188576; POINT-OF-CARE USER ID BHSSMG
[2017-03-09 05:56] LABS: POINT-OF-CARE METER ID UU14188576; POINT-OF-CARE USER ID BHSMEW
[2017-03-09 06:44] LABS: POINT-OF-CARE METER ID UU14188576
[2017-03-09 07:44] VITALS: BP 102/57
[2017-03-09 12:31] LABS: POINT-OF-CARE METER ID UU14188576; POINT-OF-CARE USER ID BHSTSA
[2017-03-09 15:38] VITALS: BP 170/91
[2017-03-09 16:56] LABS: POINT-OF-CARE METER ID UU14188576
[2017-03-09 19:39] VITALS: BP 168/93
[2017-03-09 20:47] LABS: POINT-OF-CARE METER ID UU14188576
[2017-03-10 06:36] LABS: POINT-OF-CARE METER ID UU14188576
[2017-03-10 07:47] VITALS: BP 158/79
[2017-03-10 11:46] LABS: POINT-OF-CARE METER ID UU14188576; POINT-OF-CARE USER ID BHSTSA
[2017-03-10 15:53] VITALS: BP 174/91
[2017-03-10 17:19] LABS: POINT-OF-CARE METER ID UU14188576; POINT-OF-CARE USER ID BHSMEW
[2017-03-10 20:48] LABS: POINT-OF-CARE METER ID UU14188576; POINT-OF-CARE USER ID ENVTLS63
[2017-03-11 06:14] LABS: POINT-OF-CARE METER ID UU14188576; POINT-OF-CARE USER ID ENVTLS63
[2017-03-11 07:41] VITALS: BP 108/65
[2017-03-11 12:16] LABS: POINT-OF-CARE METER ID UU14188576
[2017-03-11 15:20] VITALS: BP 169/74
[2017-03-11 19:16] LABS: POINT-OF-CARE METER ID UU14188576
[2017-03-11 21:15] LABS: POINT-OF-CARE METER ID UU14188576
[2017-03-12 06:22] LABS: POINT-OF-CARE METER ID UU14188576
[2017-03-12 07:50] VITALS: BP 157/68
[2017-03-12 12:28] LABS: POINT-OF-CARE METER ID UU14188576
[2017-03-12 15:30] VITALS: BP 167/89
[2017-03-12 17:21] LABS: POINT-OF-CARE METER ID UU14188576; POINT-OF-CARE USER ID BHSLRM
[2017-03-12 20:51] LABS: POINT-OF-CARE METER ID UU14188576
[2017-03-13 06:14] LABS: POINT-OF-CARE METER ID UU14188576; POINT-OF-CARE USER ID BHSSMG
[2017-03-13 07:46] VITALS: BP 143/66
[2017-03-13] MEDS ORDERED: GABAPENTIN100 MG PO (08:57)
[2017-03-13] MEDS ORDERED: RISPERDAL2 MG PO (08:57)
[2017-03-13] MEDS ORDERED: ESCITALOPRAM OX20 MG PO (08:57)
[2017-03-13 12:10] LABS: POINT-OF-CARE METER ID UU14188576
== END 2017-03-13 12:52 | disposition home or self-care (01) | DRG 885 ==
LOC: EME 13:32 → EDOF 03-07 11:13 → 1WEST 03-07 11:13 → ENRESERV 03-07 15:31 → 1WEST 03-13 12:52
PROVIDERS: Emergency Medicine; Psychiatry & Neurology Psychiatry
DX: F33.3 Major depressive disorder, recurrent, severe with psychotic symptoms (principal); E11.42 Type 2 diabetes mellitus with diabetic polyneuropathy; E11.649 Type 2 diabetes mellitus with hypoglycemia without coma; I10 Essential (primary) hypertension; Z87.442 Personal history of urinary calculi; M79.7 Fibromyalgia; W19.XXXA Unspecified fall, initial encounter; Z79.899 Other long term (current) drug therapy; Z87.891 Personal history of nicotine dependence; Z96.643 Presence of artificial hip joint, bilateral; I44.0 Atrioventricular block, first degree; R45.850 Homicidal ideations; R44.2 Other hallucinations; F41.9 Anxiety disorder, unspecified; R51 Headache; M25.562 Pain in left knee; T43.592A Poisoning by other antipsychotics and neuroleptics, intentional self-harm, initial encounter; Y92.019 Unspecified place in single-family (private) house as the place of occurrence of the external cause
CPT/HCPCS: 80053; 81003; 82607; 82746; 82948; 84443; 85027; 85027 GA; 90837; 93005; 97150 GO; 97165 GO; 99281; 99285; G0480

== ENCOUNTER 2018-02-27 11:44 | Emergency (ER) | payer OTHER ==
[~2018-02-27] VITALS: Ht 167.6 cm; Wt 65.9 kg
[~2018-02-27 11:44] MED LIST changes: +CARDURA2 M1 PO; +ESCITALOPRAM OX20 MG PO; +LEVOXYL50 MCG PO; +LIPITOR40 MG PO; +NEURONTIN100 MG PO; +RISPERDAL2 MG PO; +VITAMIN B-125000 MC1 PO
[2018-02-27 12:31] LABS: HEMATOCRIT 40.4 % (36.0-46.0); HEMOGLOBIN 13.4 G/DL (11.9-15.5); MCH 31.4 PG (29.0-34.0); MCHC 33.2 G/DL (30.0-36.0); MCV 94.6 FL (83-99); PLATELET COUNT 126 K/uL (156-360); RBC DIS.WIDTH-CV 13.9 % (11.8-14.6); RBC DIS.WIDTH-SD 48.4 % (39-53); RED BLOOD COUNT 4.27 M/uL (3.80-5.20); WHITE BLOOD COUNT 3.4 K/uL (4.1-10.2)
[2018-02-27 12:40] LABS: CHLORIDE 108 mEq/L (99-109); POTASSIUM 4.2 mEq/L (3.7-5.4); SODIUM 143 mEq/L (136-147)
[2018-02-27 12:42] LABS: GLUCOSE 90 mg/dL (70-99)
[2018-02-27 12:45] LABS: SERUM ETHYL ALCOHOL < 10 mg/dL
[2018-02-27 12:46] LABS: CREATININE 0.9 mg/dL (0.6-1.3); GFR ESTIMATE (CALCULATED) > 59 mL/min/
[2018-02-27 12:47] LABS: UREA NITROGEN (BUN) 11 mg/dL (9-23)
[2018-02-27] MEDS ORDERED: LEXAPRO10 MG PO (14:58)
[2018-02-27 15:06] LABS: AMPHETAMINE NEGATIVE (500 ng/mL); BARBITURATES NEGATIVE (200 ng/mL); BENZODIAZEPINES NEGATIVE (150 ng/mL); BUPRENORPHINE NEGATIVE (10 ng/mL); COCAINE NEGATIVE (150 ng/mL); METHADONE NEGATIVE (200 ng/mL); METHAMPHETAMINE NEGATIVE (500 ng/mL); OPIATES (MORPHINE) NEGATIVE (100 ng/mL); OXYCODONE NEGATIVE (100 ng/mL); PHENCYCLIDINE NEGATIVE (25 ng/mL); PROPOXYPHENE NEGATIVE (300 ng/mL); THC CANNABINOIDS NEGATIVE (50 ng/mL); TRICYCLIC ANTIDEPRESSANTS NEGATIVE (300 ng/mL)
[2018-02-27 16:19] LABS: APPEARANCE CLOUDY ((CLEAR)); BILIRUBIN NEGATIVE; BLOOD SMALL; COLOR AMBER ((YELLOW)); GLUCOSE (STRIP) NEGATIVE; KETONES 5; LEUKOCYTES SMALL; NITRITE NEGATIVE; PROTEIN (STRIP) 30; SPECIFIC GRAVITY 1.018 (1.000-1.030)
[2018-02-27] MEDS ORDERED: CIPRO500 MG PO (16:39)
[2018-02-27 16:50] LABS: AMORPHOUS URATES CRYSTALS 2+; BACTERIA 1+ /HPF; EPITHELIAL CELLS 2+ /HPF; MUCUS RARE /LPF; RED BLOOD CELLS RARE /HPF (0-5); UCUL ADDED? YES; WHITE BLOOD CELLS 30-40 /HPF (0-5)
[2018-02-27 17:05] VITALS: BP 130/74
== END 2018-02-27 17:05 | disposition home or self-care (01) ==
LOC: EME 11:44
PROVIDERS: Emergency Medicine
DX: F41.9 Anxiety disorder, unspecified (principal); F33.3 Major depressive disorder, recurrent, severe with psychotic symptoms; E11.9 Type 2 diabetes mellitus without complications; I10 Essential (primary) hypertension; E03.9 Hypothyroidism, unspecified; M79.7 Fibromyalgia; Z79.82 Long term (current) use of aspirin; Z88.2 Allergy status to sulfonamides; Z88.0 Allergy status to penicillin; Z87.891 Personal history of nicotine dependence
CPT/HCPCS: 80048; 81003; 85027; 87077; 87086; 87186; 90839; G0480